=== PATIENT | male | born 1975 | race African-American/Black ===

== ENCOUNTER → 2019-02-11 | Outpatient (CLI) | payer BC | END | disposition home or self-care (01) | LOC: CVU 10:22 | PROVIDERS: ATTEND Registered Nurse | DX: I34.0 Nonrheumatic mitral (valve) insufficiency (principal); I11.0 Hypertensive heart disease with heart failure | CPT/HCPCS: 93306 ==

== ENCOUNTER 2019-06-28 09:23 | Outpatient (CLI) | payer BC ==
[2019-06-28 09:50] LABS: ALANINE AMINOTRANSFERASE 32 U/L (12-78); ALBUMIN 3.8 g/dL (3.4-5.0); CALCIUM 8.9 mg/dL (8.5-10.1); CHLORIDE 113 mmol/L (98-107); CHOLESTEROL, TOTAL 195 mg/dL (140-239); CREATININE 1.83 mg/dL (0.7-1.3)
[2019-06-28 09:54] LABS: ALKALINE PHOSPHATASE 81 U/L (45-117); BILIRUBIN,TOTAL 0.3 mg/dL (0.2-1.0); CHOL/HDL RATIO 5.3; HDL CHOL % 19 % (26-37); HDL CHOLESTEROL (DIRECT) 37 mg/dL (40-60); LDL CHOLESTEROL,CALCULATED 142 mg/dL (54-169); LDL/HDL RATIO 3.8 (0.5-3.0); TOTAL PROTEIN 8.2 g/dL (6.4-8.2); TRIGLYCERIDES 82 mg/dL (50-200); VLDL CHOLESTEROL 16 mg/dL (0-25)
[2019-06-28 09:58] LABS: ANION GAP 4 mmol/L (5-15)
== END 2019-06-28 23:59 | disposition home or self-care (01) ==
LOC: CFH 09:23 → LAB 23:59
PROVIDERS: ATTEND Family Medicine
DX: I10 Essential (primary) hypertension (principal)
CPT/HCPCS: 36415; 80053; 80061; 82043